=== PATIENT | male | born 1940 | race Caucasian/White ===

== ENCOUNTER → 2016-10-01 | Outpatient (CLI) | payer OTHER, MEDICARE | END | disposition home or self-care (01) | LOC: RAD 18:26 | PROVIDERS: ATTEND Internal Medicine Hematology & Oncology | DX: S32.592D Other specified fracture of left pubis, subsequent encounter for fracture with routine healing (principal); Z98.890 Other specified postprocedural states; X58.XXXD Exposure to other specified factors, subsequent encounter | CPT/HCPCS: 72170 ==

== ENCOUNTER 2019-07-27 12:38 | Observation (INO) | payer MEDICARE ==
[~2019-07-27] VITALS: Ht 188 cm; Wt 82.0 kg
[~2019-07-27 12:38] MED LIST: BACITRACIN 50,000 UNIT ONE
[2019-07-27] MEDS ORDERED: VANCOMYCIN 1,000 MG ONE (12:47)
[2019-07-27 12:58] VITALS: BP 108/63
[2019-07-27] MEDS ORDERED: LACTATED RINGERS 1,000 ML IV SCH (13:00)
[2019-07-27] MEDS ORDERED: ASPI-515 PO (13:04)
[2019-07-27] MEDS ORDERED: AMOX1TAB64 PO (13:04)
[2019-07-27] MEDS ORDERED: ALLO300T PO (13:04)
[2019-07-27] MEDS ORDERED: ATOR20TA37 PO (13:04)
[2019-07-27] MEDS ORDERED: SULF1TAB23 PO (13:04)
[2019-07-27] MEDS ORDERED: HYDR-3240 PO (13:04)
[2019-07-27] MEDS ORDERED: ACETAMINOPHEN 500 MG TABLET PO ONE (13:30)
[2019-07-27] MEDS ORDERED: FENTANYL PF 100 MCG/2ML ONE (15:35)
[2019-07-27] MEDS ORDERED: MIDAZOLAM 1 MG/ML, 2ML ONE (15:35)
[2019-07-27] MEDS ORDERED: SUCCINYLCHOLINE 20 MG/ML, 10ML ONE (16:50)
[2019-07-27] MEDS ORDERED: LIDOCAINE PF 2%, 5ML ONE (16:50)
[2019-07-27] MEDS ORDERED: ROCURONIUM 10 MG/ML,10ML ONE (16:50)
[2019-07-27] MEDS ORDERED: BUPIVACAINE/PF 0.25% ONE (17:25)
[2019-07-27] MEDS ORDERED: PROPOFOL 10 MG/ML, 20ML ONE (17:25)
[2019-07-27] MEDS ORDERED: DEXAMETHASONE 4 MG/ML, 1ML ONE (17:25)
[2019-07-27] MEDS ORDERED: CEFAZOLIN 1,000 MG ONE (17:25)
[2019-07-27] MEDS ORDERED: ONDANSETRON 2MG/ML, 2ML ONE (17:25)
[2019-07-27] MEDS ORDERED: OXYcodone 5 MG/5 ML ORAL.SOL UDC PO PRN (17:30)
[2019-07-27] MEDS ORDERED: PROMETHAZINE 25 MG/ML, 1ML IV PRN (17:30)
[2019-07-27] MEDS ORDERED: FENTANYL PF 100 MCG/2ML IV PRN (17:30)
[2019-07-27] MEDS ORDERED: HYDROcodone/APAP 5/325 TABLET PO SCH (18:00)
[2019-07-27] MEDS ORDERED: SENNA/DOCUSATE TABLET PO PRN (18:00)
[2019-07-27] MEDS ORDERED: ACETAMINOPHEN 325 MG TABLET PO PRN (18:00)
[2019-07-27] MEDS ORDERED: DIPHENHYDRAMINE 25 MG CAPSULE PO PRN (18:00)
[2019-07-27] MEDS ORDERED: ONDANSETRON 2MG/ML, 2ML IV PRN (18:00)
[2019-07-27] MEDS ORDERED: morphine SULFATE 10 MG/ML, 1ML IV PRN (18:00)
[2019-07-27] MEDS ORDERED: VANCOMYCIN PMX 1GM/200ML 200 ML IVPB ONE (18:30)
[2019-07-27 20:00] VITALS: BP 102/59
[2019-07-27] MEDS: D5%-0.45% NACL 1,000 ML IV SCH (20:21)
[2019-07-27] MEDS ORDERED: ATORVASTATIN 20 MG TABLET PO SCH (21:00)
[2019-07-27] MEDS: DOCUSATE 100 MG CAPSULE PO SCH (21:54)
[2019-07-28 00:16] VITALS: BP 98/64
[2019-07-28] MEDS: D5%-0.45% NACL 1,000 ML IV SCH (03:54)
[2019-07-28 03:56] VITALS: BP 99/54
[2019-07-28 08:07] VITALS: BP 106/62
[2019-07-28] MEDS: DOCUSATE 100 MG CAPSULE PO SCH (08:44)
[2019-07-28] MEDS ORDERED: ALLOPURINOL 300 MG TABLET PO SCH (09:00)
[2019-07-28] MEDS ORDERED: VANCOMYCIN PMX 1GM/200ML 200 ML IV ONE (09:30)
== END 2019-07-28 17:32 | disposition home or self-care (01) ==
LOC: OUT 12:38 → ORIP 18:30 → 4NE 20:08 → DCLOUNGE 07-28 12:25
PROVIDERS: ADMIT Orthopaedic Surgery; ATTEND Orthopaedic Surgery
DX: M96.840 Postprocedural hematoma of a musculoskeletal structure following a musculoskeletal system procedure (principal); E78.5 Hyperlipidemia, unspecified; Z85.51 Personal history of malignant neoplasm of bladder; Z87.891 Personal history of nicotine dependence; Z96.619 Presence of unspecified artificial shoulder joint; Y83.8 Other surgical procedures as the cause of abnormal reaction of the patient, or of later complication, without mention of misadventure at the time of the procedure; Y92.89 Other specified places as the place of occurrence of the external cause
CPT/HCPCS: 13160; 23030; 64415; 87070; 87075; 87205; 93005; 96365; 96366; G0378; J0330; J0690; J1100; J2405; J2704; J3010; J3370; J3490; J2250